=== PATIENT | female | born 1985 | race Caucasian/White ===

== ENCOUNTER 2021-12-24 10:31 | Inpatient (IN) ==
[2021-12-24] MEDS ORDERED: OXYTOCIN/LR 20 UNIT/1,000 ML BAG IV ONE ×2 (10:47→15:47)
[2021-12-24] MEDS ORDERED: TRANEXAMIC ACID 1,000 MG in SODIUM CHLORIDE 0.9% 100 ML IV PRN (10:47)
[2021-12-24] MEDS ORDERED: ceFAZolin 3,000 MG in SYRINGE 1 EACH IV ONE (10:47)
[2021-12-24] MEDS ORDERED: CARBOPROST TROMETHAMINE 250 MCG/ML AMP IM PRN (10:47)
[2021-12-24] MEDS ORDERED: CITRIC ACID/SODIUM CITRATE 30 ML UDCUP PO ONE (10:47)
[2021-12-24] MEDS ORDERED: METHYLERGONOVINE 0.2 MG/1 ML AMP IM PRN (10:47)
[2021-12-24] MEDS ORDERED: miSOPROStoL 200 MCG TABLET RECTAL PRN (10:47)
[2021-12-24] MEDS ORDERED: FAMOTIDINE 20 MG/2 ML VIAL IV ONE (10:47)
[2021-12-24] MEDS ORDERED: OXYTOCIN/LR 20 UNIT/1,000 ML BAG IV SCH (11:00)
[2021-12-24] MEDS ORDERED: LACTATED RINGERS 1,000 ML IV SCH ×2 (11:00→16:00)
[2021-12-24 11:14] LABS: Basophils % 0.1 % (0.0-0.8); Eosinophils # 0.3 10*3/uL (0.0-0.87); Eosinophils % 2.4 % (0.00-10.9); Hematocrit 32.1 VOL% (35.7-47.0); Immature Granulocytes % 0.5 %; Immature Granulocytes Absolute 0.07 #; Lymphocytes # 2.2 10*3/uL (1.4-4.0); Lymphocytes % 16.2 % (21.3-54.2); Mean Corpuscular HGB Conc 34.3 GM/DL (32-36); Mean Corpuscular Volume 94.4 FL (87-102); Monocytes # 0.9 10*3/uL (0.11-0.8); Monocytes % 6.3 % (1.7-12.7); Neutrophils % 74.5 % (38.7-73.9); Platelet Count 285 T/CUMM (130-400); Red Cell Distribution Width 13.6 % (9.3-17.3); White Blood Count 13.5 T/CUMM (4-12)
[2021-12-24 11:34] LABS: Alanine Aminotransferase 12 U/L (13-56); Albumin 2.3 G/DL (3.4-5.0); Alkaline Phosphatase 155 U/L (45-117); Aspartate Amino Transferase 11 U/L (0-37); Bilirubin,Total < 0.39 MG/DL (0.20-1.00); Blood Urea Nitrogen 6 MG/DL (7-18); Calcium 8.8 MG/DL (8.5-10.1); Carbon Dioxide 23 MMOL/L (21-32); Chloride 108 MMOL/L (98-107); Glucose 93 MG/DL (74-106); Sodium 136 MMOL/L (136-145); Total Protein 6.9 G/DL (6.4-8.2)
[2021-12-24 13:11] LABS: Bacteria,Urine Occasional /HPF (Few); Mucus,Urine Occasional /LPF (Occasional); RBC,Urine 1 /HPF (0-4); Squamous Epithelial Cell,Urine Occasional /HPF (0-10)
[2021-12-24 13:14] LABS: Urine Appearance Clear (Clear); Urine Color Yellow (Yellow)
[2021-12-24 13:15] LABS: Bilirubin,Urine Negative (Negative); Blood, Urine Negative (Negative); Glucose,Urine (UA) Negative (Negative); Ketones,Urine Negative (Negative); Nitrite,Urine Negative (Negative); Protein,Urine Negative (Negative); Urine Urobilinogen 0.2 eU/dL (<2.0)
[2021-12-24 13:20] LABS: Barbiturates Screen,Urine Negative (Negative); Benzodiazepines Screen,Urine Negative (Negative); Cannabinoid Screen,Urine Positive (Negative); Opiate Screen,Urine Negative (Negative); Phencyclidine Screen,Urine Negative (Negative)
[2021-12-24] MEDS ORDERED: ONDANSETRON 4 MG/2 ML VIAL ONE (14:14)
[2021-12-24] MEDS ORDERED: buprenorphine HCL 0.3 MG/ML VIAL ONE (14:14)
[2021-12-24] MEDS ORDERED: PHENYLEPHRINE 1 MG/10 ML SYRINGE IV ONE ×2 (14:14→14:58)
[2021-12-24] MEDS ORDERED: DEXAMETHASONE 4 MG/1 ML VIAL ONE (14:14)
[2021-12-24] MEDS ORDERED: KETOROLAC 30 MG/1 ML VIAL ONE (14:14)
[2021-12-24] MEDS ORDERED: ACETAMINOPHEN INJ 1,000 MG/100 ML VIAL IV ONE (14:14)
[2021-12-24] MEDS: OXYTOCIN/LR 30 UNIT/1,000 ML BAG IV SCH ×2 (15:12→19:50)
[2021-12-24 15:26] LABS: Bilirubin,Urine Negative (Negative); Blood, Urine Negative (Negative); Glucose,Urine (UA) Negative (Negative); Ketones,Urine Negative (Negative); Mucus,Urine Occasional /LPF (Occasional); Nitrite,Urine Negative (Negative); Protein,Urine Negative (Negative); RBC,Urine 1 /HPF (0-4); Squamous Epithelial Cell,Urine Occasional /HPF (0-10); Urine Appearance CLEAR (Clear); Urine Color Yellow (Yellow); Urine Specific Gravity 1.015 (1.001-1.035); Urine Urobilinogen < 2.0 eU/dL (<2.0)
[2021-12-24 15:27] LABS: Cord Arterial Blood HCO3 22.7 MMOL/L
[2021-12-24 15:32] LABS: Cord Venous Blood HCO3 23.8 MMOL/L; Cord Venous Blood PCO2 47.2 MMHG; Cord Venous Blood PO2 27.2
[2021-12-24] MEDS ORDERED: ONDANSETRON 4 MG/2 ML VIAL IV PRN (15:47)
[2021-12-24] MEDS ORDERED: RHO(D) IMMUNE GLOBULIN 300 MCG SYRINGE IM ONE (15:47)
[2021-12-24] MEDS ORDERED: SIMETHICONE CHEW 80 MG TABLET PO PRN (15:47)
[2021-12-24] MEDS ORDERED: ACETAMINOPHEN 325 MG TABLET PO PRN (15:47)
[2021-12-24 18:57] LABS: Hematocrit 30.5 VOL% (35.7-47.0); Hemoglobin 10.3 GM/DL (12.0-16.0)
[2021-12-24] MEDS: KETOROLAC 30 MG/1 ML VIAL IV SCH (21:33)
[2021-12-24] MEDS: DOCUSATE SODIUM 100 MG CAPSULE PO SCH (21:38)
[2021-12-24] MEDS: ACETAMINOPHEN 500 MG TABLET PO SCH (21:40)
[2021-12-25] MEDS: ACETAMINOPHEN 500 MG TABLET PO SCH ×2 (01:52→07:00)
[2021-12-25] MEDS: KETOROLAC 30 MG/1 ML VIAL IV SCH ×2 (03:26→09:10)
[2021-12-25 06:28] LABS: Basophils % 0.1 % (0.0-0.8); Hematocrit 25.2 VOL% (35.7-47.0); Hemoglobin 8.4 GM/DL (12.0-16.0); Immature Granulocytes % 1.1 %; Immature Granulocytes Absolute 0.25 #; Lymphocytes # 2.2 10*3/uL (1.4-4.0); Lymphocytes % 9.9 % (21.3-54.2); Mean Corpuscular HGB Conc 33.3 GM/DL (32-36); Mean Corpuscular Volume 96.9 FL (87-102); Mean Platelet Volume 10.9 FL (9.6-12.0); Monocytes # 1.1 10*3/uL (0.11-0.8); Monocytes % 5.1 % (1.7-12.7); Neutrophils % 83.8 % (38.7-73.9); Platelet Count 253 T/CUMM (130-400); Red Cell Distribution Width 13.5 % (9.3-17.3); White Blood Count 22.3 T/CUMM (4-12)
[2021-12-25] MEDS: ceFAZolin 2,000 MG/50 ML DUPLEX IV SCH ×2 (06:52)
[2021-12-25 06:54] LABS: Hypochromia Slight; Lymphocytes 5 % (20-55); Total Cells Counted 100
[2021-12-25 06:55] LABS: Microcytosis Slight; Ovalocytes Slight
[2021-12-25] MEDS: MULTIVITAMIN (PRENATAL) TABLET PO SCH (09:10)
[2021-12-25] MEDS: METOCLOPRAMIDE 10 MG TABLET PO SCH ×2 (09:10→15:29)
[2021-12-25] MEDS: MAGNESIUM HYDROXIDE SUSP 30 ML UDCUP PO PRN ×2 (09:11→21:22)
[2021-12-25] MEDS: DOCUSATE SODIUM 100 MG CAPSULE PO SCH ×2 (09:11→21:22)
[2021-12-25] MEDS: IBUPROFEN 800 MG TABLET PO PRN (21:24)
[2021-12-26] MEDS: IBUPROFEN 800 MG TABLET PO PRN (05:29)
[2021-12-26] MEDS: MULTIVITAMIN (PRENATAL) TABLET PO SCH (10:26)
[2021-12-26] MEDS: DOCUSATE SODIUM 100 MG CAPSULE PO SCH (10:26)
[2021-12-26 16:51] VITALS: BP 140/80
== END 2021-12-26 16:15 | disposition home or self-care (01) | DRG 539 ==
LOC: N.LD 10:31 → N.OB 22:20
PROVIDERS: ADMIT Obstetrics & Gynecology; ATTEND Obstetrics & Gynecology